=== PATIENT | female | born 1960 | race Two or more races ===

== ENCOUNTER 2020-06-01 17:12 | Inpatient (IN) | payer BC, MEDICAID ==
[~2020-06-01] VITALS: Ht 144.8 cm; Wt 61.7 kg
--- NOTE | 2020-06-01 17:36 | NUR ---
Urine collected nd sent to LAB.
--- NOTE | 2020-06-01 17:43 | NUR ---
MD at bedside at this time.
[2020-06-01] MEDS ORDERED: IV NORMAL SALINE 1000 ML BAG IV ONE (17:45)
[2020-06-01 17:55] LABS: *BILIRUBIN,URIN NEGATIVE (NEGATIVE); *BLOOD, URINE 2+ (NEGATIVE); *CLARITY,URINE CLEAR (CLEAR); *COLOR,URINE YELLOW (YELLOW); *KETONES,URINE NEGATIVE (NEGATIVE); *UROBILINOGEN,URINE 0.2 E.U./dl (NORMAL); LEUKOCYTE ESTERASE ,URINE TRACE (NEGATIVE); NITRITE, URINE NEGATIVE (NEGATIVE); PH,URINE 5.5 (5.0-8.0); UGLUCOSE NEGATIVE (NEGATIVE)
--- NOTE | 2020-06-01 18:15 | NUR ---
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
[2020-06-01 18:16] LABS: BASOPHILS # (AUTO) 0.1 K/uL (0.0-8.0); BASOPHILS % (AUTO) 0.4 % (0.0-2.0); EOSINOPHILS # (AUTO) 0.2 K/uL (0.0-0.7); EOSINOPHILS % (AUTO) 1.5 % (0.0-7.0); HEMATOCRIT 32.2 % (31.2-41.9); HEMOGLOBIN 10.7 g/dL (10.9-14.3); LYMPHOCYTES # (AUTO) 3.1 K/uL (20.0-40.0); LYMPHOCYTES % (AUTO) 21.3 % (20.5-51.5); MEAN CORPUSCULAR HEMOGLOBIN 29.6 uug (24.7-32.8); MEAN CORPUSCULAR HGB CONC 33 g/dL (32.3-35.6); MEAN CORPUSCULAR VOLUME 88.9 fL (75.5-95.3); MONOCYTES % (AUTO) 6.6 % (0.0-11.0); NEUTROPHILS # (AUTO) 10.2 K/uL (1.8-8.9); NEUTROPHILS % (AUTO) 70.2 % (38.5-71.5); PLATELET COUNT (AUTO) 433 K/uL (179-408); RED BLOOD CELL COUNT(AUTO) 3.62 MIL/uL (3.63-4.92); WHITE BLOOD COUNT (AUTO) 14.5 K/uL (3.8-11.8)
[2020-06-01 18:21] LABS: CREATININE 2.1 mg/dL (0.6-1.3); POTASSIUM 3.1 mmol/L (3.5-5.1)
[2020-06-01 18:27] LABS: BILIRUBIN,DIRECT 0.1 mg/dL (0.0-0.2); BILIRUBIN,TOTAL 0.2 mg/dL (0.2-1.0); TOTAL PROTEIN, SERUM 7.8 g/dL (6.4-8.2)
[2020-06-01] MEDS ORDERED: PIPERACILLIN SODIUM/TAZOBACTAM 4.5 G in IV DEXTROSE 5% 50 ML IV SCH (18:45)
[2020-06-01] MEDS ORDERED: POTASSIUM BICARBONATE/CIT AC 25 MEQ TABLET.EFF PO ONE (18:45)
[2020-06-01] MEDS ORDERED: POTASSIUM BICARBONATE/CIT AC 25 MEQ TABLET.EFF ONE (18:55)
[2020-06-01] MEDS ORDERED: PIPERACILLIN/TAZO 4.5 GM VIAL IV ONE (18:56)
[2020-06-01] MEDS ORDERED: POTASSIUM CHLORIDE 200 ML ONE (18:56)
--- NOTE | 2020-06-01 19:17 | NUR ---
Paged [employer] demonstration agent. Waiting for DR Thorne to call back.
--- NOTE | 2020-06-01 19:32 | NUR ---
Dr Elmore speaking with Dr Thorne.
--- NOTE | 2020-06-01 19:35 | NUR ---
Dr Elmore speaking with DR Santos for surgery consult.
[2020-06-01] MEDS: POTASSIUM CHLORIDE 50 ML IV SCH ×4 (19:44→21:52)
[2020-06-01 20:07] LABS: RBC,URINE 20-50 /HPF (0-3)
[2020-06-01 20:08] LABS: BACTERIA,URINE FEW /HPF (NONE SEEN); SQUAMOUS EPITHELIAL CELL,UR FEW /HPF (NONE SEEN)
--- NOTE | 2020-06-01 20:40 | NUR ---
Admitted a 59 y/o female to [facility] with an admitting diagnosis of Appendicitis/ARF. Pt is ambulatory, transferred to bed on her own. No s/s of respiratory distress, complains of R posterior back pain but per pt, pain is bearable. IV access on left AC intact and patent. Admission care rendered, belongings at bedside. Safety measures initiated, call light within reach. Instructed pt on NPO status. Pt verbalized understanding. will continue to monitor.
--- NOTE | 2020-06-01 20:52 | NUR ---
Gave KCL IVPB bag #2,3 and 4 to [facility] diagnostic medical sonographer to finish infusing.
[2020-06-01] MEDS ORDERED: ACETAMINOPHEN 650 MG SUPP.RECT RC PRN (21:45)
[2020-06-01] MEDS ORDERED: MORPHINE SULFATE 2 MG/1 ML DISP.SYRIN IV PRN (21:45)
[2020-06-01] MEDS ORDERED: ONDANSETRON 4 MG/2 ML VIAL IV PRN (21:45)
[2020-06-01] MEDS ORDERED: POTASSIUM CHLORIDE 20 MEQ in IV D5/ 0.9% NACL 1,000 ML IV PRN (21:45)
[2020-06-01 21:59] VITALS: BP 112/78
[2020-06-02] MEDS ORDERED: PIPERACILLIN/TAZOBACTAM/D5W 100 ML ONE (00:29)
[2020-06-02] MEDS: PIPERACILLIN/TAZO 2.25 G in IV DEXTROSE 5% 50 ML IV SCH ×2 (00:34→05:24)
[2020-06-02 04:00] VITALS: BP 106/62
[2020-06-02] MEDS ORDERED: BUPIVACAINE 0.25% 30 ML VIAL ONE (06:20)
[2020-06-02] MEDS ORDERED: BUPIVACAINE/EPI PF 0.5% 10 ML VIAL ONE (06:20)
--- NOTE | 2020-06-02 06:26 | NUR ---
Taken to OR for surgery, VS WNL, no s/s of respiratory distress, denies any pain or discomfort. IV access intact and patent. Belongings at bedside. will endorse to incoming nurse.
[2020-06-02 06:35] LABS: BASOPHILS # (AUTO) 0.1 K/uL (0.0-8.0); BASOPHILS % (AUTO) 0.5 % (0.0-2.0); EOSINOPHILS # (AUTO) 0.2 K/uL (0.0-0.7); EOSINOPHILS % (AUTO) 2.3 % (0.0-7.0); HEMATOCRIT 29.1 % (31.2-41.9); LYMPHOCYTES # (AUTO) 2.8 K/uL (20.0-40.0); LYMPHOCYTES % (AUTO) 26.3 % (20.5-51.5); MEAN CORPUSCULAR HEMOGLOBIN 30.8 uug (24.7-32.8); MEAN CORPUSCULAR HGB CONC 34 g/dL (32.3-35.6); MEAN CORPUSCULAR VOLUME 89.8 fL (75.5-95.3); MONOCYTES # (AUTO) 0.7 K/uL (2.0-10.0); MONOCYTES % (AUTO) 6.6 % (0.0-11.0); NEUTROPHILS # (AUTO) 6.9 K/uL (1.8-8.9); NEUTROPHILS % (AUTO) 64.3 % (38.5-71.5); PLATELET COUNT (AUTO) 388 K/uL (179-408); RED BLOOD CELL COUNT(AUTO) 3.24 MIL/uL (3.63-4.92); WHITE BLOOD COUNT (AUTO) 10.7 K/uL (3.8-11.8)
[2020-06-02 06:49] LABS: BILIRUBIN,TOTAL 0.5 mg/dL (0.2-1.0); CREATININE 1.3 mg/dL (0.6-1.3); MAGNESIUM 1.8 mg/dL (1.8-2.4); PHOSPHOROUS 2.8 mg/dL (2.5-4.9); TOTAL PROTEIN, SERUM 6.5 g/dL (6.4-8.2)
[2020-06-02] MEDS ORDERED: FENTANYL CITRATE 100 MCG/2 ML AMPUL ONE ×2 (07:05→08:12)
[2020-06-02] MEDS ORDERED: SUCCINYLCHOLINE CHLORIDE 200 MG/10 ML VIAL ONE (07:05)
[2020-06-02] MEDS ORDERED: MIDAZOLAM HCL 2 MG/2 ML VIAL ONE (07:05)
[2020-06-02] MEDS ORDERED: ROCURONIUM BROMIDE 50 MG/5 ML VIAL ONE (07:05)
[2020-06-02] MEDS ORDERED: PANTOPRAZOLE SODIUM 40 MG VIAL IV SCH (09:00)
[2020-06-02 09:15] VITALS: BP 109/68
--- NOTE | 2020-06-02 09:15 | NUR ---
Received patient from surgery. awake, alert and oriented x 4. on 2L O2 via NC. with Left AC #20 IV access. Vital signs WNL. bed locked and in low position. bed alarm on. call light within reach. will continue to monitor.
[2020-06-02 12:00] VITALS: BP 97/55
[2020-06-02] MEDS ORDERED: PIPERACILLIN/TAZO 2.25 G in IV DEXTROSE 5% 50 ML IV SCH (12:00)
[2020-06-02] MEDS ORDERED: PIPERACILLIN SODIUM/TAZOBACTAM 3.37 G in IV DEXTROSE 5% 100 ML IV SCH (14:00)
[2020-06-02] MEDS ORDERED: CEPH500C2 PO (20:10)
[2020-06-02] MEDS ORDERED: IBUP-1953 PO (20:10)
[2020-06-02 20:29] VITALS: BP 104/54
--- NOTE | 2020-06-02 21:15 | NUR ---
Pt is discharged in improved condition; confirmed nex Rx for Keflex at [facility] pharmacy per pt; ff up with MD and surgeon instructed; diet explained; escorted pt to car via wheelchair; pt picked up son. IV HL removed; no bleeding noted.
== END 2020-06-02 21:00 | disposition home or self-care (01) | DRG 341 ==
LOC: ER 17:14 → MEDSURG3 20:19
PROVIDERS: ADMIT Internal Medicine; ATTEND Internal Medicine
PROC: 0DTJ4ZZ Resection of Appendix, Percutaneous Endoscopic Approach (ICD-10-PCS; principal; 2020-06-02)
DX: K35.30 Acute appendicitis with localized peritonitis, without perforation or gangrene (principal); N17.0 Acute kidney failure with tubular necrosis; E87.1 Hypo-osmolality and hyponatremia; E66.9 Obesity, unspecified; E86.1 Hypovolemia; D50.9 Iron deficiency anemia, unspecified; Z20.822 Contact with and (suspected) exposure to COVID-19; K21.9 Gastro-esophageal reflux disease without esophagitis; K80.20 Calculus of gallbladder without cholecystitis without obstruction; Z68.29 Body mass index [BMI] 29.0-29.9, adult; E87.6 Hypokalemia; F17.200 Nicotine dependence, unspecified, uncomplicated
CPT/HCPCS: 36415; 83550; 83690; 83735; 84100; 85025; A4663; C9113; G0378; J0330; J2250; J2270; J2543; J3010; J3480; J3490; J7030; J7042; J7060